=== PATIENT | female | born 1970 | race Caucasian/White ===

== ENCOUNTER 2018-08-24 19:10 | Emergency (ER) | payer MEDICAID ==
[~2018-08-24] VITALS: Ht 167.6 cm; Wt 60.5 kg
[~2018-08-24 19:10] MED LIST: CEPH500C5 PO; TRIA15OI2 TOP
[2018-08-24] MEDS ORDERED: predniSONE 20 mg tablet PO ONE (19:45)
[2018-08-24] MEDS ORDERED: epiNEPHrine 1 mg/ml inj IM STA (19:45)
[2018-08-24] MEDS ORDERED: diphenhydrAMINE 25mg capsule PO ONE (19:45)
[2018-08-24] MEDS ORDERED: DIPH-681 PO (20:36)
[2018-08-24] MEDS ORDERED: PRED20TA PO (20:36)
[2018-08-24 20:49] VITALS: BP 117/68
== END 2018-08-24 20:52 | disposition home or self-care (01) ==
LOC: ER 19:10
DX: T78.3XXA Angioneurotic edema, initial encounter (principal); Z88.0 Allergy status to penicillin; Z79.2 Long term (current) use of antibiotics; Z79.899 Other long term (current) drug therapy
CPT/HCPCS: 96372; 99283; J0171; J7512; Q0163

== ENCOUNTER 2022-04-12 09:04 | Day surgery (SDC) | payer MEDICAID ==
[2022-04-12] VITALS (16 sets, daily range): BP systolic 103–126; BP diastolic 59–93
[~2022-04-12] VITALS: Ht 162.6 cm; Wt 66.3 kg
[~2022-04-12 09:04] MED LIST changes: -CEPH500C5 PO; +DIPH-681 PO
[2022-04-12 09:38] LABS: BASOPHILS % (AUTO) 0.8 % (0-1); EOSINOPHILS # (AUTO) 0.2 X10'3 (0-0.9); EOSINOPHILS % (AUTO) 4.9 % (0-6); LYMPHOCYTES # (AUTO) 1.2 X10'3 (1.1-4.8); MEAN CORPUSCULAR HEMOGLOBIN 28.6 PG (27.0-31.0); MEAN CORPUSCULAR HGB CONC 33.4 g/dL (33.0-36.5); MEAN CORPUSCULAR VOLUME 85.6 FL (78-98); MONOCYTES # (AUTO) 0.5 X10'3 (0-0.9); MONOCYTES % (AUTO) 10.1 % (2-12); NEUTROPHILS # (AUTO) 2.9 X10'3 (1.8-7.7); NEUTROPHILS % (AUTO) 60.2 % (42-75); PLATELET COUNT 223 X10'3 (140-440); RED CELL DISTRIBUTION WIDTH 14.8 % (11.5-14.5); WHITE BLOOD COUNT 4.8 X10'3 (4.5-11.0)
[2022-04-12] MEDS ORDERED: EPIN0.3A3 (09:41)
[2022-04-12] MEDS ORDERED: LEVO150T98 PO (09:41)
[2022-04-12] MEDS ORDERED: TERB250T89 PO (09:41)
[2022-04-12] MEDS ORDERED: LIDOcaine 1%/PF 5ML 10 MG/ML VIAL ONE (10:18)
[2022-04-12] MEDS ORDERED: midazolam 1 mg/ML 2ml injection ONE (10:19)
[2022-04-12] MEDS ORDERED: gelatin sponge, absorbable (Gelfoam 12-7MM) sponge TP ONE ×2 (10:19→10:59)
[2022-04-12] MEDS ORDERED: fentaNYL/PF 50MCG/1 ML 2ML syringe ONE (10:19)
[2022-04-12] MEDS ORDERED: normal saline 1000ml 1,000 ML IV SCH (11:30)
== END 2022-04-12 16:30 | disposition home or self-care (01) ==
LOC: SSTAY O 09:04
PROVIDERS: ATTEND Radiology Vascular & Interventional Radiology
DX: R16.0 Hepatomegaly, not elsewhere classified (principal); Z87.891 Personal history of nicotine dependence; Z88.0 Allergy status to penicillin; Z79.899 Other long term (current) drug therapy; Z88.6 Allergy status to analgesic agent
CPT/HCPCS: 36415; 47000; 77012; 85025; 85610; 87811; 99152; 99153; J2250; J3010; J3490; J7030; A4615; A6449